=== PATIENT | male | born 1950 | race Caucasian/White ===

== ENCOUNTER 2016-08-06 06:48 | Day surgery (SDC) | payer OTHER, BC, MEDICARE ==
[2016-08-05 11:55] VITALS: BMI 25.5
[2016-08-06 07:07] LABS: URINE APPEARANCE CLEAR; URINE BILIRUBIN NEGATIVE (NEGATIVE); URINE BLOOD NEGATIVE (NEGATIVE); URINE COLOR YELLOW; URINE GLUCOSE (UA) NEGATIVE (NEGATIVE); URINE KETONE NEGATIVE (NEGATIVE); URINE LEUK ESTERASE NEGATIVE (NEGATIVE); URINE NITRITE NEGATIVE (NEGATIVE); URINE PROTEIN NEGATIVE (NEGATIVE); URINE UROBILINOGEN 2.0 E.U/dl E.U./dl (0.2-1.0)
[2016-08-06] MEDS ORDERED: ROPIVACAINE HCL 0.5% 30ML VIAL ONE (07:35)
[2016-08-06] MEDS ORDERED: MIDAZOLAM HCL 2 MG/2 ML SINGLE DOSE VIAL ONE ×3 (07:36→09:06)
[2016-08-06] MEDS ORDERED: ceFAZolin SODIUM 1 GM VIAL IVPB ONE (08:24)
[2016-08-06] MEDS ORDERED: PROPOFOL 20 ML ONE ×2 (09:06→09:37)
--- NOTE | 2016-08-06 09:09 | HP ---
Satellite [facility] - Chief Complaint Chief Complaint: right shoulder pain - Past Medical History Allergies/Adverse Reactions: Allergies Allergy/AdvReac Type Severity Reaction Status Date / Time No Known Allergies Allergy Verified 08/05/16 11:55 - Current Medications Current Medications: Medication Instructions Recorded Alprazolam [Xanax] 0.25 mg PO DAILY 08/05/16 Aspirin [ASA -] 81 mg PO DAILY 08/05/16 Atorvastatin Ca [Lipitor] 20 mg PO HS 08/05/16 Carvedilol [Coreg -] 6.25 mg PO BID 08/05/16 Clopidogrel Bisulfate [Plavix -] 75 mg PO DAILY 08/05/16 Lisinopril [Zestril] 2.5 mg PO DAILY 08/05/16 Paroxetine HCl [Paxil] 20 mg PO DAILY 08/05/16 Ubidecarenone [Coq10] 600 mg PO DAILY 08/05/16 Satellite Physical Exam - Physical Examination Vital Signs: Vital Signs Period Temp Pulse Resp BP Sys/Harman Pulse Ox Last 24 Hr 97.6 F-97.6 F 63-63 20-20 114-114/74-74 97 General Appearance: Well Nourished, Well Developed, Alert & Oriented x3 ENT: Clear Lung: Normal air movement Heart: Regular rate & rhythm Extremities: Other (right shoulder- +ttp, decr rom, + neer, + child, nvi MRI- supraspinatus tendinosis) Neurological: Intact, Alert, Oriented Satellite Impression/Plan - Impression/Plan Impression: right shoulder impingement Operative Procedure: right shoulder arthroscopy Date to be Performed: 08/06/16
[2016-08-06] MEDS ORDERED: ceFAZolin SODIUM 1 GM VIAL ONE (09:31)
[2016-08-06] MEDS ORDERED: KETOROLAC TROMETHAMINE 30 MG/1 ML VIAL ONE (09:33)
[2016-08-06] MEDS ORDERED: ONDANSETRON 4 MG/2 ML VIAL ONE (09:33)
[2016-08-06] MEDS ORDERED: DEXAMETHASONE SOD PHOSPHATE 4 MG/1 ML VIAL ONE (09:33)
[2016-08-06] MEDS ORDERED: ONDANSETRON 4 MG/2 ML VIAL IVPUSH PRN (09:49)
[2016-08-06] MEDS ORDERED: PROMETHAZINE HCL 25 MG/1 ML VIAL IVPUSH PRN (09:49)
[2016-08-06] MEDS ORDERED: oxyCODONE HCL 5 MG TABLET PO PRN (09:49)
[2016-08-06] MEDS ORDERED: ePHEDrine SULFATE 50 MG/1 ML AMPULE ONE (09:50)
[2016-08-06] MEDS ORDERED: LACTATED RINGERS SOLUTION 1,000 ML IV SCH (10:00)
--- NOTE | 2016-08-06 10:20 | OP ---
Operative Note - Note: Operative Date: 08/06/16 Pre-Operative Diagnosis: right shoulder impingement syndrome Operation: right shoulder arthroscopy, decompression, extensive debridement Post-Operative Diagnosis: Same as Pre-op Surgeon: Bob Cavanaugh Anesthesiologist/MEDICAL SALES SPECIALIST: Kaylie Wilson Anesthesia: General, Local Specimens Removed: shavings Estimated Blood Loss (mls): 0 Blood Volume Replaced (mls): 0 Fluid Volume Replaced (mls): 1,000 Operative Report Dictated: Yes
[2016-08-06 10:50] VITALS: TEMP 97.5
--- NOTE | 2016-08-06 11:19 | OP ---
DATE OF OPERATION: 08/06/2016 PREOPERATIVE DIAGNOSIS: Right shoulder subacromial impingement. POSTOPERATIVE DIAGNOSIS: Right shoulder subacromial impingement. PROCEDURE: Right shoulder arthroscopy, subacromial decompression and extensive debridement. SURGEON: Ze Cee MD ASSISTANTS: Kaylie Wilson CRNA, Jeff Bauman ANESTHESIA: Deep right interscalene block and MAC anesthesia. DRAINS: None. COMPLICATIONS: None. SPECIMENS: Arthroscopic shavings. BLOOD LOSS: None. BLOOD GIVEN: None. FLUID REPLACEMENT: 700 mL Plasmalyte. This patient is a 66-year-old male with a preoperative diagnosis of right shoulder impingement syndrome. After understanding the potential risks, complications, alternatives and benefits of surgery, versus nonsurgical treatment, the patient elected to undergo this procedure. PROCEDURE: Patient was brought to the operating room peripheral IV placed, IV sedation given. Right interscalene block was performed. IV Ancef was given. He was placed into the beach chair position with ample padding throughout. His right upper extremity was prepped and draped in the usual sterile fashion. The bony landmarks marked out with the marking pen. The posterior portal was established. A diagnostic glenohumeral arthroscopy was performed. The joint looked good. looked good. There was no arthritis. Biceps anchor, the labrum, everything of the intraarticular structures looked good. Next our attention was turned to the subacromial space. A lateral portal was established with the spinal needle under direct visualization. Patient had a tremendous amount of inflammatory bursitis. This was debrided with the straight shaver and the [employer] wand. This revealed extremely large bony subacromial spur. This was taken down with the 5.5 mm oval tariq and cleaned up in reverse and with the straight shaver. Photographs were taken throughout. I did an extensive debridement of the subacromial and subdeltoid bursa. After this, I got good visualization of the top surface of the rotator cuff and there was no bursal-sided rotator cuff tear. The area was copiously irrigated and washed out, all debris removed. The arthroscopy portal was closed with 3-0 nylon sutures. The area was then washed and dried, covered with Aquacel. He was taken down out of the beach chair position. Total operative time was about 45 minutes. He was put into the supine and brought to the Ambulatory recovery room in stable condition. ZE CEE M.D. [id number]
[2016-08-06 12:46] VITALS: BP 137/76; PULSE 59
--- NOTE | 2016-08-07 12:56 | PATH ---
Surgical Pathology Report Patient Name: JESUS GUEVARA [facility]. Rec. #: [id number] /Age/Gender: 1950 (Age: 66) / M Account: [id number] Location: [facility] SURGICAL Taken: 08/06/2016 Received: 08/06/2016 Reported: 08/07/2016 Physicians: Bob Cavanaugh M.D. Specimen(s) Received SHAVINGS RIGHT SHOULDER Clinical History Right shoulder tear Final Diagnosis SOFT TISSUE, RIGHT SHOULDER, ARTHROSCOPIC SHAVINGS: SYNOVIUM AND FIBROCARTILAGE WITH MYXOHYALINE DEGENERATION. FRAGMENTS OF UNREMARKABLE BONE AND SKELETAL MUSCLE. Electronically Signed David Weller M.D. Gross Description Received in formalin, labeled "right shoulder shavings" is a 5.0 x 4.3 x 0.5 cm aggregate of schafer-yellow soft tissue fragments. A circulation sales representative portion is submitted in one cassette. /08/06/201608/06/2016
== END 2016-08-06 11:55 | disposition home or self-care (01) ==
LOC: JASU-SURG 06:48
PROVIDERS: ATTEND Orthopaedic Surgery
PROC: 0RBJ4ZZ Excision of Right Shoulder Joint, Percutaneous Endoscopic Approach (ICD-10-PCS; principal; 2016-08-06 09:00)
DX: M75.41 Impingement syndrome of right shoulder (principal)
CPT/HCPCS: 81003; 88304-TC; 94760